=== PATIENT | male | born 1955 | race Caucasian/White ===

== ENCOUNTER 2024-01-28 12:22 | Emergency (ER) | payer BC, SELFPAY ==
--- NOTE | 2024-01-28 12:27 | ED.MALEGU ---
HPI - Male Genitourinary General Chief complaint: Urogenital-Male Stated complaint: Urinary Problems/Irritation Related Data Home Medications Medication Instructions Recorded Confirmed doxycycline hyclate 100 mg tablet mg 01/28/24 Allergies Allergy/AdvReac Type Severity Reaction Status Date / Time No Known Allergies Allergy Verified 01/28/24 12:39 [facility] Family History Family History Father Family history of malignant melanoma Sibling Family history of lymphoma HIV (human immunodeficiency virus infection) Grandparent Diabetes mellitus Social History Social History Smoking status: Never smoker Second hand tobacco smoke exposure: No Alcohol intake: current Substance use: unknown Discharge Plan Discharge Prescriptions: No Action doxycycline hyclate 100 mg tablet amlodipine 10 mg tablet 10 mg PO DAILY Qty: 90 1RF lisinopril 20 mg tablet 20 mg PO DAILY Qty: 90 1RF Follow-up/Referrals: UNKNOWN,DOCTOR [Non-Staff] -
[2024-01-28 12:35] VITALS: BP 143/79; PULSE 82; RESP 18; TEMP 36.8; O2SAT 99
--- NOTE | 2024-01-28 12:58 | ED.SKABFB ---
HPI - Skin/Abscess/Foreign Bdy General Chief complaint: Skin/Abscess/Foreign Body Stated complaint: Urinary Problems/Irritation Time Seen by Provider: 01/28/24 12:53 Source: patient and RN notes reviewed Mode of arrival: ambulatory Limitations: dementia History of Present Illness HPI narrative: 68-year-old male presents with concern for continued swelling, redness, warmth to the left elbow and forearm. He reports he was being treated for cellulitis last week to that area with doxycycline. Reports he had an allergic reaction to doxycycline. He reports his allergic reaction involved facial swelling, and now is having swelling of the shaft of the penis. He reports his urine stream is off because of the swelling. He stop the doxycycline on Sunday. He denies dysuria, frequency, urgency. MD complaint: other (Redness) Related Data Home Medications Medication Instructions Recorded Confirmed doxycycline hyclate 100 mg tablet mg 01/28/24 Allergies Allergy/AdvReac Type Severity Reaction Status Date / Time doxycycline Allergy Swelling Verified 01/28/24 13:03 Review of Systems Review of Systems: CONSTITUTIONAL: Denies malaise, chills, sweats, or fever. EYES: Denies redness, or discharge. ENT: Denies rhinorrhea, congestion, swollen lips, swollen tongue CARDIOVASCULAR: Denies chest pain, palpitations, or edema. RESPIRATORY: Denies cough or dyspnea. GASTROINTESTINAL: Denies abdominal pain, nausea, vomiting SKIN: Reports redness, swelling, warmth, tenderness to left elbow. Denies purulent drainage, vesicles, bullae, numbness, pain beyond proportion. Reports swelling of the penile shaft MUSCULOSKELETAL: Denies joint pain or myalgia. NEUROLOGIC: Denies headache. All systems reviewed & are unremarkable except as noted in HPI and below PMFSH Family History Family History Father Family history of malignant melanoma Sibling Family history of lymphoma HIV (human immunodeficiency virus infection) Grandparent Diabetes mellitus Social History Social History Smoking status: Never smoker Second hand tobacco smoke exposure: No Alcohol intake: current Substance use: unknown Comments At time of signature, agree with nursing past medical, surgical, social and family history. There is no relevant family history pertinent to the presenting complaint Exam Narrative: GENERAL: Well-appearing, well-nourished, and in no acute distress. HEAD: Normocephalic, atraumatic. EYES: PERRLA, conjunctivae clear ENT: Mucous membranes moist. NECK: Supple. No lymphadenopathy CHEST: Clear to auscultation. No respiratory distress. HEART: Regular rate and rhythm. SKIN: Warm, dry. Erythema, induration, tenderness, warmth without fluctuation in with sharp margins noted to the left elbow and forearm. No vesicles, bullae, necrosis, ecchymosis, crepitus noted. : Edema without erythema, tenderness, warmth noted to the shaft of the penis, scrotum is unremarkable NEURO: Alert and oriented x3. PSYCH: Normal mood and affect Course Course Emergency Course: Patient's penile shaft swelling appears to be related to allergic reaction rather than any other acute infection, no erythema, redness, warmth. No UTI symptoms. Patient is aware of diagnosis, understands and agrees to treatment plan. Anticipatory guidance given. Patient agrees to follow-up as directed and is aware of reasons to seek care at the emergency department. Portions of this record may have been created with voice recognition software Level of Care: Express Care Visit Vital Signs Vital signs: Vital Signs Temperature 98.2 F 01/28/24 12:35 Pulse Rate 82 01/28/24 12:35 Respiratory Rate 18 01/28/24 12:35 Blood Pressure 143/79 H 01/28/24 12:35 Pulse Oximetry 99 01/28/24 12:35 Oxygen Delivery Room Air 01/28/24 12:35 Temperature 98.2 F
== END 2024-01-28 13:06 | disposition home or self-care (01) ==
PROVIDERS: Emergency Provider Nurse Practitioner
DX: N48.22 Cellulitis of corpus cavernosum and penis (principal)
CPT/HCPCS: 99213; G0463